=== PATIENT | male | born 1990 | race African-American/Black ===

== ENCOUNTER 2017-02-22 06:52 | Emergency (ER) | payer OTHER ==
[~2017-02-22] VITALS: Ht 188 cm; Wt 83.9 kg
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
[2017-02-22] MEDS ORDERED: LIDOCAINE/EPI/TETRACAINE TOPICAL GEL 3 ML. TP ONE (07:30)
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
[2017-02-22 08:47] VITALS: BP 124/86
[2017-02-22] MEDS ORDERED: ACETAMINOPHEN 500 MG TABLET PO ONE (09:00)
[2017-02-22] MEDS ORDERED: ONDA4TAB10 SL (09:14)
[2017-02-22] MEDS ORDERED: CIPR250T30 PO (09:16)
== END 2017-02-22 08:51 | disposition home or self-care (01) ==
LOC: ER 06:52
DX: S09.8XXA Other specified injuries of head, initial encounter (principal); S01.01XA Laceration without foreign body of scalp, initial encounter; S00.83XA Contusion of other part of head, initial encounter; S69.91XA Unspecified injury of right wrist, hand and finger(s), initial encounter; Y08.89XA Assault by other specified means, initial encounter; Y93.89 Activity, other specified; Y99.8 Other external cause status; Y92.89 Other specified places as the place of occurrence of the external cause
CPT/HCPCS: 12002; 70450; 70486; 73130; 99284-25